=== PATIENT | female | born 2000 | race Hispanic/Latino ===

== ENCOUNTER 2022-12-10 02:02 | Emergency (ER) | payer OTHER ==
[2022-12-10] MEDS ORDERED: Fluorescein Opthalmic Strip ONE (03:09)
== END 2022-12-10 03:50 | disposition home or self-care (01) ==
LOC: CSHERS 02:02
DX: S05.01XA Injury of conjunctiva and corneal abrasion without foreign body, right eye, initial encounter (principal); W22.8XXA Striking against or struck by other objects, initial encounter
CPT/HCPCS: 99283